=== PATIENT | female | born 1995 | race Caucasian/White ===

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

== ENCOUNTER 2017-04-10 15:22 | Emergency (ER) | payer BC ==
[~2017-04-10] VITALS: Ht 170.2 cm; Wt 66.0 kg
[2017-04-10 15:32] VITALS: BP 127/67; PULSE 72; RESP 16; TEMP 98.4; O2SAT 96
[2017-04-10] MEDS ORDERED: METH36 PO (15:40)
[2017-04-10] MEDS ORDERED: BIRTH CONTROL (15:40)
[2017-04-10 15:53] LABS: BLOOD, URINE SMALL (NEG); GLUCOSE,URINE NEG (NEG); KETONE, URINE NEG (NEG); NITRITE,URINE NEG (NEG)
--- NOTE | 2017-04-10 15:57 | PD ---
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 This patient complains of vaginal discharge and vaginal itching. She says it's been going on for a full year. She had a pelvic evaluation one month ago and was given some medication that didn't help. She denies pelvic pain. She doesn't think she is . No vomiting or fever. No alleviating factors. Symptoms severity is moderate PFSH Past Medical History ADHD: Yes Diminished Hearing: No Immunizations Current: Yes Seizures: Yes (AFTER TOO MUCH SUN EXPOSURE ONCE.) Influenza Vaccination: Yes ?: Unknown : 0 Past Surgical History Surgical History: No Previous Surgery Social History Alcohol Use: Yes (SOCIAL) Tobacco Use: No Substance Use: No Allergies-Medications (Allergen,Severity, Reaction): Coded Allergies: No Known Allergies (Verified Adverse Reaction, Unknown, 04/10/17) Reported Meds & Prescriptions Reported Meds & Active Scripts Active Reported [ Control] Concerta (Methylphenidate HCl) 36 Mg Linda 36 Mg PO DAILY Review of Systems General / Constitutional: No: Fever Eyes: No: Visual changes HENT: No: Headaches Cardiovascular: No: Chest Pain or Discomfort Respiratory: No: Shortness of Breath Gastrointestinal: No: Abdominal Pain Genitourinary: Positive: Discharge, No: Dysuria Musculoskeletal: No: Pain Skin: No Rash Neurologic: No: Weakness Psychiatric: No: Depression Endocrine: No: Polydipsia Hematologic/Lymphatic: No: Easy Bruising Physical Exam Narrative GASTROINTESTINAL: Abdomen soft, non-tender, nondistended. Positive bowel sounds. No hepato-splenomegaly, or palpable masses. No guarding. SKIN: Focused skin assessment reveals no rash or ulcers. Skin is warm and dry. Palpation shows no induration or nodules. Psych: Normal mood and affect. Normal insight and judgment. Pelvic: No cervical motion tenderness. No blood in the vault. Scant whitish discharge. No adnexal mass or tenderness. No genital lesions Data Data Last Documented VS Vital Signs Date Time Temp Pulse Resp B/P (MAP) Pulse Ox O2 Delivery O2 Flow Rate FiO2 04/10/17 15:38 (87) 04/10/17 15:32 98.4 72 16 96 Room Air Orders Orders Urinalysis - C+S If Indicated (04/10/17 15:42) Ed Urine Pregnancytest Poc (04/10/17 15:42) Wet Prep Profile (04/10/17 15:54) Gc And Chlamydia Pcr (04/10/17 15:54) Labs Laboratory Tests Test 04/10/17 15:45 04/10/17 16:00 Urine Color YELLOW Urine Turbidity CLEAR Urine pH 6.0 Urine Specific Alexis 1.024 Urine Protein NEG mg/dL Urine Glucose (UA) NEG mg/dL Urine Ketones NEG mg/dL Urine Occult Blood SMALL Urine Nitrite NEG Urine Bilirubin NEG Urine Leukocyte Esterase NEG Urine RBC 4-9 /hpf Urine WBC 3-5 /hpf Urine Squamous Epithelial Cells > 8 /hpf Urine Bacteria FEW /hpf Urine Mucus MOD /lpf Microscopic Urinalysis Comment CULT NOT INDICATED Clue Cells (Wet Prep) NONE SEEN Vaginal Trichomonas (Wet Prep) NONE SEEN Vaginal Yeast (Wet Prep) NONE SEEN MDM Medical Decision Making Medical Screen Exam Complete: Yes Emergency Medical Condition: Yes Medical Record Reviewed: Yes Differential Diagnosis PID, vaginitis, cervicitis Narrative Course I have reviewed the patient's electronic medical record. Wet prep is negative GC chlamydia sent No clinical suspicion of PID on exam Recommend outpatient CELL TECHNICIAN follow-up Urine is negative Urine does not meet standards for culture Diagnosis Primary Impression: Vaginitis Qualified Codes: N76.1 - Subacute and chronic vaginitis Additional Instructions: Follow up with outpatient psychiatrist Med/Other Pt SpecificInfo: Other Disposition: 01 DISCHARGE HOME Condition: Stable Tim Arce MD Apr 10, 2017 15:57
[2017-04-10 16:00] LABS: URINE COLOR YELLOW (YELLW/STRAW)
[2017-04-10 16:01] LABS: BACTERIA, URINE FEW /hpf; COMMENT (UR) CULT NOT INDICATED; CULTURE IF INDICATED CULT NOT INDICATED; MUCUS URINE MOD /lpf (OCC); SQUAMOUS EPITHELIAL CELL URINE > 8 /hpf (0-5)
[2017-04-10 19:24] LABS: CHLAMYDIA PCR NOT DETECTED (NOT DETECT); NEISSERIA PCR NOT DETECTED (NOT DETECT)
== END 2017-04-10 16:29 | disposition home or self-care (01) ==
LOC: PHED 15:22
DX: N76.1 Subacute and chronic vaginitis (principal); Z86.59 Personal history of other mental and behavioral disorders; Z86.69 Personal history of other diseases of the nervous system and sense organs
CPT/HCPCS: 81001; 84703; 87210; 87491; 87591; 99284